=== PATIENT | female | born 1965 | race African-American/Black ===

== ENCOUNTER 2016-08-14 17:11 | Emergency (ER) | payer BC, OTHER ==
[2016-08-14 17:18] VITALS: BP 149/98; PULSE 98; TEMP 97.9; BMI 33.0
[2016-08-14] MEDS ORDERED: KETOROLAC TROMETHAMINE 60 MG/2 ML VIAL IM ONE (17:57)
[2016-08-14] MEDS ORDERED: KETOROLAC TROMETHAMINE 60 MG/2 ML VIAL ONE (18:00)
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
== END 2016-08-14 19:32 | disposition home or self-care (01) ==
LOC: JERFT 17:11
PROC: 3E0233Z Introduction of Anti-inflammatory into Muscle, Percutaneous Approach (ICD-10-PCS; principal; 2016-08-14)
DX: S20.221A Contusion of right back wall of thorax, initial encounter (principal); V78.1XXA Passenger on bus injured in noncollision transport accident in nontraffic accident, initial encounter; Y93.89 Activity, other specified; Y92.414 Local residential or business street as the place of occurrence of the external cause; Y99.0 Civilian activity done for income or pay; I10 Essential (primary) hypertension
CPT/HCPCS: 71020-TC; 71101-TC-RT; 72050-TC; 72070-TC; 72100-TC; 73070-TC-LT; 99281-25

== ENCOUNTER 2017-01-26 08:45 | Emergency (ER) | payer BC, OTHER ==
[2017-01-26 08:55] VITALS: TEMP 97.8; BMI 33.0
--- NOTE | 2017-01-26 09:28 | PDOC ---
Attending Attestation - Resident Resident Name: Thomas Mckeon - HPI HPI: 01/26/17 09:57 The patient is a 51 year old female, with no significant past medical history, who presents to the emergency department with heaving bleeding for approximately 2 days. Patient reports she has gone through 15 pads since yesterday and has been passing large clots. She reports associated menstrual cramping, stronger than her normal period. She reports her LMP was early September. She denies any chest pain, shortness of breath, diaphoresis, palpitations, lower extremity edema, or calf tenderness. She denies any headache, lightheadedness, or dizziness. - Physicial Exam PE: 01/26/17 10:00 Constitutional: Awake, alert, oriented. No acute distress. Head: Normocephalic. Atraumatic Eyes: PERRL. EOMI. Conjunctivae are not pale. ENT: Mucous membranes are moist and intact. Posterior pharynx without exudates or erythema. Uvula midline. Neck: Supple. Full ROM. No lymphadenopathy. Cardiovascular: Regular rate. Regular rhythm. S1, S2 regular. Distal pulses are 2+ and symmetric. Pulmonary/Chest: No evidence of respiratory distress. Clear to auscultation bilaterally No wheezing, rales or rhonchi. Abdominal: Nontender.. Soft and non-distended. No rebound, guarding or rigidity. No organomegaly. No palpable masses. Good bowel sounds. Back: No CVA tenderness. Musculoskeletal: No edema. No cyanosis. No clubbing. Full range of motion in all extremities. No calf tenderness. Radial/pedal pulses are intact and 2+ bilaterally Skin: Skin is warm and dry. No petechiae. No purpura. Neurological: Alert and oriented to person, place, and time. Cranial nerves II -XII are grossly intact. Normal speech. Strength is grossly symmetric. No sensory deficits. Psychiatric: Good eye contact. Normal interaction, affect and behavior. - Medical Decision Making 01/26/17 10:01 This is a 51 year old female, with no pmhx, who presents to the emergency department with heavy vaginal bleeding for approximately 2 days. Plan: Labs, US Documentation prepared by Ivonne Rosa, acting as medical billing representative for Romi Brothers DO. <Ivonne Rosa - Last Filed: 01/26/17 10:01> - Resident Resident Name: LindaThomas - ED Attending Attestation I have performed the following: I have examined & evaluated the patient, The case was reviewed & discussed with the resident, I agree w/resident's findings & plan, Exceptions are as noted - Medical Decision Making 01/26/17 09:28 I, Dr. Romi Brothers, DO, attest that this document has been prepared under my direction and personally reviewed by me in its entirety. I further attest, that it accurately reflects all work, treatment, procedures and medical decision -making performed by me. 01/26/17 10:35 a/p: 51yo female with heavy menstrual bleeding and cramping -labs, pelvic exam, pelvic ultrasound -most likely perimenopausal -will monitor and reassess 01/26/17 11:40 HGB stable. pending ultrasound. poss uti, will start abx given suprapubic ttp <Romi Brothers - Last Filed: 01/26/17 12:44> Discharge Disposition - Discharge Dispostion Admit: No <Romi Brothers - Last Filed: 01/26/17 12:44> - Diagnosis Dysfunctional uterine bleeding, Cyst of ovary, Uterine leiomyoma - Discharge Dispostion Disposition: HOME Condition at time of disposition: Stable - Prescriptions Prescriptions: Cephalexin [Keflex] 500 mg PO BID #10 capsule - Referrals Referrals: Teri Natarajan MD [Staff Physician] - - Patient Instructions Printed Discharge Instructions: DI for Vaginal Bleeding, DI for Ovarian Cyst Additional Instructions: Please make an appointment to see your [employer]PER in 2-3 days. Please take all the antibiotics as prescribed. Please return to the ED with any further concerns.
[2017-01-26] MEDS ORDERED: KETOROLAC TROMETHAMINE 60 MG/2 ML VIAL ONE (09:39)
[2017-01-26] MEDS ORDERED: KETOROLAC TROMETHAMINE 60 MG/2 ML VIAL IM ONE (09:50)
[2017-01-26] MEDS ORDERED: SODIUM CHLORIDE 0.9% 1000 ML INFUS.BAG IV ONE (10:00)
[2017-01-26] MEDS ORDERED: VALSARTAN 40 MG TABLET (FP) PO ONE (10:00)
[2017-01-26] MEDS ORDERED: VALSARTAN 80 MG TABLET (UD) ONE (10:08)
--- NOTE | 2017-01-26 10:37 | PDOC ---
History of Present Illness <Romi Brothers - Last Filed: 01/26/17 13:02> - General History Source: Patient Exam Limitations: No Limitations - History of Present Illness Initial Comments: 01/26/17 10:31 The patient is a 51F with a PMH of HTN who presents to the ED with complaints of abdominal pain. The patient states that she is having b/l lower quadrant pain similar to menstrual cramps. She describes it as a cramping that does not radiate but is more severe than her menstrual cramps. The patient states that her LMP was in September. She states that her bleeding is normal for her, and for her periods. This is the same time of month that she normally gets her periods. Her periods have been regular since she was 13. She states that her periods have been this severe only 1-2 other times in her life. The patient denies CP, SOB, fever, chills, dysuria, vaginal d/c. <Thomas Mckeon - Last Filed: 01/26/17 13:10> - General Chief Complaint: Pain, Acute Stated Complaint: ABD PAIN Time Seen by Provider: 01/26/17 09:18 Past History <Romi Brothers - Last Filed: 01/26/17 13:02> - Past Medical History HTN: Yes - Reproductive History Is Patient Now?: No - Suicide/Smoking/Psychosocial Hx Smoking History: Never smoked Information on smoking cessation initiated: No Hx Alcohol Use: No Drug/Substance Use Hx: No Substance Use Type: None <Thomas Mckeon - Last Filed: 01/26/17 13:10> - Past Medical History Allergies/Adverse Reactions: Allergies Allergy/AdvReac Type Severity Reaction Status Date / Time No Known Allergies Allergy Verified 01/26/17 08:49 Home Medications: Ambulatory Orders Cephalexin [Keflex] 500 mg PO BID #10 capsule 01/26/17 Olmesartan Medoxomil [Benicar (Nf)] 40 mg PO DAILY 01/26/17 Review of Systems - Review of Systems Able to Perform ROS?: Yes Comments:: 01/26/17 10:36 GENERAL/CONSTITUTIONAL: No fever or chills. No weakness. HEAD, EYES, EARS, NOSE AND THROAT: No change in vision. No ear pain or discharge. No sore throat. GASTROINTESTINAL: Positive for b/l lower quadrant abdominal cramping. No nausea , vomiting, diarrhea, or constipation. GENITOURINARY: No dysuria, discharge, frequency, hematuria, or change in urination. CARDIOVASCULAR: No chest pain, palpitations, or lightheadedness. RESPIRATORY: No cough, wheezing, shortness of breath, or hemoptysis. MUSCULOSKELETAL: No joint or muscle swelling or pain. No neck or back pain. SKIN: No rash or lesions. NEUROLOGIC: No headache, numbness, tingling, weakness, loss of consciousness, or change in strength/sensation. ENDOCRINE: No increased thirst. No abnormal weight change. HEMATOLOGIC/LYMPHATIC: No anemia, easy bleeding, or history of blood clots. ALLERGIC/IMMUNOLOGIC: No hives or skin allergy. Is the patient limited Norwegian proficient: No <Thomas Mckeon - Last Filed: 01/26/17 13:10> *Physical Exam - Vital Signs Last Vital Signs Temp Pulse Resp BP Pulse Ox 97.8 F 88 20 165/102 100 01/26/17 08:49 01/26/17 08:49 01/26/17 08:49 01/26/17 08:49 01/26/17 08:49 <Romi Brothers - Last Filed: 01/26/17 13:02> - Vital Signs Last Vital Signs Temp Pulse Resp BP Pulse Ox 97.8 F 88 20 165/102 100 01/26/17 08:49 01/26/17 08:49 01/26/17 08:49 01/26/17 08:49 01/26/17 08:49 - Physical Exam Comments: 01/26/17 10:37 GENERAL: Well developed, well nourished. Awake and alert. No acute distress. HEENT: Normocephalic, atraumatic. PERRLA, EOMI. No conjunctival pallor. Sclera are non-icteric. Moist mucous membranes. Oropharynx is clear. NECK: Supple. Full ROM. No JVD. CARDIOVASCULAR: Regular rate and rhythm. No murmurs, rubs, or gallops. Distal pulses are 2+ and symmetric. PULMONARY: No evidence of respiratory distress. Lungs clear to auscultation bilaterally. No wheezing, rales or rhonchi. ABDOMINAL: Soft. Tender to palpation over suprapubic area. Non-distended. No rebound or guarding. No organomegaly. Normoactive bowel sounds. GENITOURINARY: No CVA tenderness bilaterally. MUSCULOSKELETAL: Normal range of motion at all joints. No bony deformities or tenderness. EXTREMITIES: No cyanosis. No clubbing. No edema. No calf tenderness. SKIN: Warm and dry. Normal capillary refill. No rashes. No jaundice. NEUROLOGICAL: Alert, awake, appropriate. Gait is normal without ataxia. PSYCHIATRIC: Cooperative. Good eye contact. Appropriate mood and affect. <Thomas Mckeon - Last Filed: 01/26/17 13:10> ED Treatment Course - LABORATORY CBC & Chemistry Diagram: 01/26/17 09:50 01/26/17 09:50 - ADDITIONAL ORDERS Additional order review: Laboratory Results 01/26/17 01/26/17 09:50 09:50 Sodium 138 Potassium 4.2 Chloride 106 Carbon Dioxide 28 Anion Gap 4 L BUN 13 Creatinine 1.0 Creat Clearance w eGFR 58.22 Random Glucose 101 Calcium 8.8 Total Bilirubin 0.6 AST 65 H ALT 63 Alkaline Phosphatase 77 Total Protein 8.3 H Albumin 3.6 Serum , Qual Negative Urine Color Red Urine Appearance Bloody Urine pH 6.5 Urine Protein 3+ H Urine Glucose (UA) Negative Urine Ketones Negative Urine Blood 3+ H Urine Nitrite Positive Urine Bilirubin 1+ H Urine Urobilinogen 1.0 Urine RBC >100 Urine WBC 6 01/26/17 09:50 RBC 4.42 MCV 88.7 MCHC 33.4 RDW 14.2 MPV 8.3 Neutrophils % 59.3 Lymphocytes % 27.8 Monocytes % 6.4 Eosinophils % 5.6 H Basophils % 0.9 - Medications Given in the ED: ED Medications Discontinued Medications Generic Name Dose Route Start Last Admin Trade Name Freq PRN Reason Stop Dose Admin Cephalexin HCl 500 mg 01/26/17 11:00 01/26/17 12:06 Keflex - PO 01/26/17 11:01 500 mg ONCE ONE Administration Ketorolac Tromethamine 60 mg 01/26/17 09:50 01/26/17 09:51 Toradol Injection - IM 01/26/17 09:51 60 mg ONCE ONE Administration Sodium Chloride 1,000 ml 01/26/17 10:00 01/26/17 10:13 Normal Saline - IV 01/26/17 10:01 1,000 ml ONCE ONE Administration Valsartan 40 mg 01/26/17 10:00 01/26/17 10:13 Diovan - PO 01/26/17 10:01 40 mg ONCE ONE Administration <Romi Brothers - Last Filed: 01/26/17 13:02> - LABORATORY CBC & Chemistry Diagram: 01/26/17 09:50 01/26/17 09:50 - RADIOLOGY Radiology Studies Ordered: Category Date Time Status TRANSVAGINAL ULTRASOUND US [US] Stat Ultrasound 01/26/17 09:49 Ordered - Medications Given in the ED: ED Medications Discontinued Medications Generic Name Dose Route Start Last Admin Trade Name Kp PRN Reason Stop Dose Admin Ketorolac Tromethamine 60 mg 01/26/17 09:50 01/26/17 09:51 Toradol Injection - IM 01/26/17 09:51 60 mg ONCE ONE Administration Sodium Chloride 1,000 ml 01/26/17 10:00 01/26/17 10:13 Normal Saline - IV 01/26/17 10:01 1,000 ml ONCE ONE Administration Valsartan 40 mg 01/26/17 10:00 01/26/17 10:13 Diovan - PO 01/26/17 10:01 40 mg ONCE ONE Administration <Thomas Mckeon - Last Filed: 01/26/17 13:10> Medical Decision Making - Medical Decision Making 01/26/17 10:38 The patient is a 51F with a PMH of HTN who presents with menstrual cramping and vaginal bleeding. I would like to rule out ovarian cyst/hemorrhage, as well as endometritis and fibroids. I have ordered basic labs to evaluate hgb status and electrolytes. Will reassess when labs and imaging return. 01/26/17 11:01 No WBC count. UA indicative of UTI (nitrite positive). Will treat with keflex 500 mg PO. Pending U/S read. 01/26/17 13:09 U/S shows fibroid and questionable cyst. Patient d/c with f/u stressed and abx. <Thomas Mckeon - Last Filed: 01/26/17 13:10> *DC/Admit/Observation/Transfer <Romi Brothers - Last Filed: 01/26/17 13:02> <Thomas Mckeon - Last Filed: 01/26/17 13:10> Diagnosis at time of Disposition: DUB (dysfunctional uterine bleeding) Ovarian cyst Qualifiers: Laterality: left Qualified Code(s): N83.202 - Unspecified ovarian cyst, left side; N83.202 - Unspecified ovarian cyst, left side Fibroid uterus Qualifiers: Uterine leiomyoma location: unspecified location Qualified Code(s): D25.9 - Leiomyoma of uterus, unspecified; D25.9 - Leiomyoma of uterus, unspecified Urinary tract infection Qualifiers: Urinary tract infection type: site unspecified Hematuria presence: without hematuria Qualified Code(s): N39.0 - Urinary tract infection, site not specified ; N39.0 - Urinary tract infection, site not specified - Discharge Dispostion Disposition: HOME Condition at time of disposition: Stable - Prescriptions Prescriptions: Cephalexin [Keflex] 500 mg PO BID #10 capsule - Referrals Referrals: Teri Natarajan MD [Staff Physician] - - Patient Instructions Printed Discharge Instructions: DI for Ovarian Cyst, DI for Vaginal Bleeding Additional Instructions: Please make an appointment to see your CAR JOCKEY in 2-3 days. Please take all the antibiotics as prescribed. Please return to the ED with any further concerns. - Post Discharge Activity Forms/Work/School Notes: Back to Work
[2017-01-26 10:40] LABS: BASOPHIL 0.9 % (0-2.0); EOSINOPHIL 5.6 % (0-4.5); MCH 29.7 pg (25.7-33.7); MCHC 33.4 g/dl (32.0-36.0); MEAN CELL VOLUME 88.7 fl (80-96); MEAN PLT VOLUME 8.3 fl (7.5-11.1); NEUTROPHILS 59.3 % (42.8-82.8); PLATELET COUNT 248 K/MM3 (134-434); RDW 14.2 % (11.6-15.6); WHITE BLOOD COUNT 7.8 K/mm3 (4.0-10.0)
[2017-01-26 10:46] LABS: PH,URINE 6.5 (5.0-8.0); URINE BILIRUBIN 1+ (NEGATIVE); URINE BLOOD 3+ (NEGATIVE); URINE COLOR RED; URINE GLUCOSE (UA) NEGATIVE (NEGATIVE); URINE KETONE NEGATIVE (NEGATIVE)
[2017-01-26 10:47] LABS: ALBUMIN 3.6 g/dl (3.4-5.0); ANION GAP 4 (8-16); BILIRUBIN,TOTAL 0.6 mg/dL (0.2-1.0); CALCIUM 8.8 mg/dL (8.5-10.1); CO2 28 mmol/L (21-32); GLUCOSE,RANDOM 101 mg/dL (74-106); SGPT/ALT 63 U/L (12-78); TOT PROT 8.3 g/dl (6.4-8.2)
[2017-01-26 10:48] LABS: ALK PHOS 77 U/L (45-117)
[2017-01-26 10:49] LABS: SGOT/AST 65 U/L (15-37); URINE NITRITE POSITIVE (NEGATIVE); URINE PROTEIN 3+ (NEGATIVE)
[2017-01-26 10:50] LABS: URINE APPEARANCE BLOODY
[2017-01-26 10:58] LABS: URINE WBC 6 /hpf (3-5)
[2017-01-26] MEDS ORDERED: CEPHALEXIN MONOHYDRATE 500 MG CAPSULE (UD) PO ONE (11:00)
[2017-01-26 11:10] LABS: URINE RBC >100 /hpf (0-3)
[2017-01-26] MEDS ORDERED: CEPHALEXIN MONOHYDRATE 250 MG CAPSULE (FP) ONE (11:10)
[2017-01-26 13:20] VITALS: BP 148/94; PULSE 72
[2017-01-26 16:57] LABS: URINE LEUK ESTERASE Negative (NEGATIVE)
== END 2017-01-26 13:00 | disposition home or self-care (01) ==
LOC: JER 08:45
PROC: 3E0233Z Introduction of Anti-inflammatory into Muscle, Percutaneous Approach (ICD-10-PCS; principal; 2017-01-26)
DX: D25.9 Leiomyoma of uterus, unspecified (principal); N83.202 Unspecified ovarian cyst, left side; N39.0 Urinary tract infection, site not specified
CPT/HCPCS: 36415; 76830-TC; 80053; 81003; 81015; 84703; 85025; 99282-25

== ENCOUNTER 2017-05-16 17:30 | Emergency (ER) | payer BC ==
--- NOTE | 2017-05-16 18:33 | PDOC ---
Rapid Medical Evaluation Time Seen by Provider: 05/16/17 18:27 Medical Evaluation: Allergies Allergy/AdvReac Type Severity Reaction Status Date / Time No Known Allergies Allergy Verified 01/26/17 08:49 05/16/17 18:27 I have performed a brief in-person evaluation of this patient. The patient presents with a chief complaint of: headache and R eye pressure since this morning Pertinent physical exam findings: injected R eye I have ordered the following: labs The patient will proceed to the ED for further evaluation. Discharge Disposition - Diagnosis Acute eye pain - Referrals - Patient Instructions - Post Discharge Activity
[2017-05-16 18:35] VITALS: BP 141/100; PULSE 90; TEMP 98.1; BMI 33.9
[2017-05-16 21:05] LABS: BASO % 0.6 % (0-2.0); EOS % 2.9 % (0-4.5); HEMATOCRIT 39.2 % (32.4-45.2); HEMOGLOBIN 12.9 GM/dL (10.7-15.3); LYMPH % 34.4 % (8-40); MCH 29.4 pg (25.7-33.7); MCHC 32.8 g/dl (32.0-36.0); MEAN CELL VOLUME 89.7 fl (80-96); MEAN PLT VOLUME 8.4 fl (7.5-11.1); MONO % 7.4 % (3.8-10.2); NEUT % 54.7 % (42.8-82.8); PLATELET COUNT 241 K/MM3 (134-434); RBC 4.37 M/mm3 (3.60-5.2); RDW 13.9 % (11.6-15.6); WHITE BLOOD COUNT 9.8 K/mm3 (4.0-10.0)
[2017-05-16 21:23] LABS: ALBUMIN 3.5 g/dl (3.4-5.0); ALK PHOS 64 U/L (45-117); ANION GAP 5 (8-16); BILIRUBIN,TOTAL 0.4 mg/dL (0.2-1.0); BLOOD UREA NITROGEN 17 mg/dL (7-18); CALCIUM 8.4 mg/dL (8.5-10.1); CHLORIDE 106 mmol/L (98-107); CO2 28 mmol/L (21-32); CREATININE 0.9 mg/dL (0.55-1.02); GLUCOSE,RANDOM 92 mg/dL (74-106); POTASSIUM 4.4 mmol/L (3.5-5.1); SGOT/AST 33 U/L (15-37); SGPT/ALT 47 U/L (12-78); SODIUM 139 mmol/L (136-145); TOT PROT 7.8 g/dl (6.4-8.2)
[2017-05-16] MEDS ORDERED: ERYTHROMYCIN 0.5% OPHTHALMIC OINTMENT 3.5 GM TUBE OU ONE (23:04)
[2017-05-16] MEDS ORDERED: TETRACAINE 0.5% HCL 0.6ML DROPPER.BOTTLE OP ONE (23:04)
[2017-05-16] MEDS ORDERED: FLUORESCEIN NA 1 EA STRIP OU ONE (23:04)
--- NOTE | 2017-05-16 23:06 | PDOC ---
History of Present Illness - General Chief Complaint: Headache Stated Complaint: EYE PAIN Time Seen by Provider: 05/16/17 18:27 History Source: Patient - History of Present Illness Initial Comments: 05/16/17 23:43 51 year old female with right eye pain since yesterday. pain is worse with closing eye lid. no pain to the eye with movement, or periorbital erythema noted. denies injury or trauma, fever/ chills. no vision changes reported. 05/16/17 23:45 Past History - Past Medical History Allergies/Adverse Reactions: Allergies Allergy/AdvReac Type Severity Reaction Status Date / Time No Known Allergies Allergy Verified 05/16/17 18:31 Home Medications: Ambulatory Orders Cephalexin [Keflex] 500 mg PO BID #10 capsule 01/26/17 Olmesartan Medoxomil [Benicar (Nf)] 40 mg PO DAILY 01/26/17 Erythromycin 0.5% Eye Ointment [Erythromycin 0.5% Eye Ointment -] 1 applic OP Q4HWA #1 tube 05/16/17 COPD: No HTN: Yes - Suicide/Smoking/Psychosocial Hx Smoking History: Never smoked Have you smoked in the past 12 months: No Information on smoking cessation initiated: No Hx Alcohol Use: No Drug/Substance Use Hx: No Substance Use Type: None Review of Systems - Review of Systems Able to Perform ROS?: Yes Is the patient limited Polish proficient: No HEENTM: Yes: Eye Pain (right) *Physical Exam - Vital Signs Last Vital Signs Temp Pulse Resp BP Pulse Ox 98.1 F 90 16 141/100 97 05/16/17 18:32 05/16/17 18:32 05/16/17 18:32 05/16/17 18:32 05/16/17 18:32 - Physical Exam HEENT: positive: Other (PERRLA, snellen not done (patient does not have her glasses) + right corneal abrasion ) Respiratory/Chest: positive: Lungs Clear ED Treatment Course - LABORATORY CBC & Chemistry Diagram: 05/16/17 20:15 05/16/17 20:39 - ADDITIONAL ORDERS Additional order review: Laboratory Results 05/16/17 20:39 Sodium 139 Potassium 4.4 Chloride 106 Carbon Dioxide 28 Anion Gap 5 L BUN 17 Creatinine 0.9 Creat Clearance w eGFR > 60 Random Glucose 92 Calcium 8.4 L Total Bilirubin 0.4 AST 33 ALT 47 Alkaline Phosphatase 64 C-Reactive Protein < 0.3 Total Protein 7.8 Albumin 3.5 05/16/17 20:15 RBC 4.37 MCV 89.7 MCHC 32.8 RDW 13.9 MPV 8.4 Neutrophils % 54.7 Lymphocytes % 34.4 Monocytes % 7.4 Eosinophils % 2.9 Basophils % 0.6 *DC/Admit/Observation/Transfer Diagnosis at time of Disposition: Right corneal abrasion Qualifiers: Encounter type: initial encounter Qualified Code(s): S05.01XA - Injury of conjunctiva and corneal abrasion without foreign body, right eye, initial encounter - Discharge Dispostion Disposition: HOME - Prescriptions Prescriptions: Erythromycin 0.5% Eye Ointment [Erythromycin 0.5% Eye Ointment -] 1 applic OP Q4HWA #1 tube - Referrals Referrals: Edis Cardenas MD [Primary Care Provider] - Kayden Georges MD [Staff Physician] - Call tomorrow - Patient Instructions Printed Discharge Instructions: Corneal Abrasion - Post Discharge Activity
[2017-05-16] MEDS ORDERED: TETRACAINE 0.5% OPHTH SOLN 2 ML BOTTLE ONE (23:17)
[2017-05-16] MEDS ORDERED: FLUORESCEIN NA 1 EA STRIP ONE (23:17)
[2017-05-16] MEDS ORDERED: ERYTHROMYCIN 0.5% OPHTHALMIC OINTMENT 3.5 GM TUBE ONE (23:17)
== END 2017-05-16 23:57 | disposition home or self-care (01) ==
LOC: JER 17:30
DX: S05.01XA Injury of conjunctiva and corneal abrasion without foreign body, right eye, initial encounter (principal); X58.XXXA Exposure to other specified factors, initial encounter; Y93.89 Activity, other specified; Y92.89 Other specified places as the place of occurrence of the external cause; Y99.8 Other external cause status
CPT/HCPCS: 36415; 80053; 85025; 85651; 86140; 99281-25; 99282-25